=== PATIENT | male | born 1995 | race African-American/Black ===

== ENCOUNTER 2022-06-20 15:22 | Emergency (ER) | payer OTHER ==
[~2022-06-20] VITALS: Ht 185.4 cm; Wt 71.8 kg
[2022-06-20] MEDS ORDERED: SODIUM CHLORIDE 0.9% 1000ML 1,000 ML IV STA (15:37)
[2022-06-20] MEDS ORDERED: SODIUM CHLORIDE 0.9% 1000ML 1,000 ML ONE (15:52)
== END 2022-06-20 16:38 | disposition home or self-care (01) ==
LOC: FSED 15:26
DX: R07.89 Other chest pain (principal); R50.9 Fever, unspecified; F41.9 Anxiety disorder, unspecified; F20.9 Schizophrenia, unspecified
CPT/HCPCS: 80053; 81003; 82553; 84484; 85025; 93005; 99283; J7030